=== PATIENT | male | born 1990 | race Caucasian/White ===

== ENCOUNTER 2017-12-15 14:54 | Emergency (ER) | payer OTHER ==
[~2017-12-15] VITALS: Ht 172.7 cm; Wt 84.4 kg
[2017-12-15] MEDS ORDERED: ZYRTEC10 MG (15:07)
== END 2017-12-15 16:25 | disposition home or self-care (01) ==
LOC: ER 14:54
DX: H60.8X1 Other otitis externa, right ear (principal)